=== PATIENT | male | born 2000 | race Caucasian/White ===

== ENCOUNTER 2025-06-05 13:43 | Emergency (ER) | payer MEDICAID ==
[~2025-06-05] VITALS: Ht 180.3 cm; Wt 88.0 kg
[2025-06-05 13:47] VITALS: O2SAT 98
[2025-06-05 13:48] VITALS: BP 144/87; PULSE 70; RESP 18; TEMP 36.9; O2SAT 99
[2025-06-05] MEDS: LIDOCAINE HCL 1% 20ML VIAL MC ONE (15:30)
[2025-06-05] MEDS: BACITRACIN ZINC OINT UDPKT TOP ONE (15:30)
[2025-06-05] MEDS: IBUPROFEN 600MG TABLET PO ONE (15:30)
[2025-06-05] MEDS ORDERED: IBUP-1455 MT (16:23)
[2025-06-05] MEDS ORDERED: BO1 TP (16:23)
== END 2025-06-05 16:36 | disposition home or self-care (01) ==
LOC: ER 13:43
DX: S91.202A Unspecified open wound of left great toe with damage to nail, initial encounter (principal); Z79.899 Other long term (current) drug therapy; X58.XXXA Exposure to other specified factors, initial encounter; Y93.89 Activity, other specified; Y92.89 Other specified places as the place of occurrence of the external cause; Y99.8 Other external cause status
CPT/HCPCS: 11730; 99284; J2003; Z7610